=== PATIENT | male | born 1960 | race Caucasian/White ===

== ENCOUNTER → 2018-02-20 | Outpatient (CLI) | payer BC ==
--- NOTE | 2018-02-20 16:46 | CT ---
EXAMINATION TYPE: CT abdomen w con DATE OF EXAM: 02/20/2018 COMPARISON: None HISTORY: abdominal pain, hx of pancreatitis CT DLP: 1112.8 mGycm Automated exposure control for dose reduction was used. TECHNIQUE: Helical acquisition of images was performed from the lung bases through the top of iliac crest to include entire abdomen. CONTRAST: Performed with Oral Contrast and with IV Contrast, patient injected with 100 mL of Isovue 300. FINDINGS: Some mild coronary artery calcification present. There is a small hiatal hernia. LUNG BASES: No significant abnormality is appreciated. LIVER/GB: Patient is post cholecystectomy. Liver shows low attenuation possibly due to hepatic steato sis. PANCREAS: No significant abnormality is seen. SPLEEN: No significant abnormality is seen. ADRENALS: No significant abnormality is seen. KIDNEYS: No significant abnormality is seen. BOWEL: There is no change associated with the colon. Small bowel loops show some wall thickening.. LYMPH NODES: No significant abnormality is appreciated. OSSEOUS STRUCTURES: No significant abnormality is seen. FREE AIR: No Free Air visible ASCITES: None visible. RETROPERITONEAL ADENOPATHY: No Retroperitoneal Adenopathy visible. OTHER: The appendix is normal. IMPRESSION: CORRELATE FOR POSSIBLE ENTERITIS. HIATAL HERNIA. DIVERTICULOSIS. HEPATIC STEATOSIS. POSTOP CHANGES.
== END | disposition home or self-care (01) ==
LOC: RADCTMAIN 14:47
PROVIDERS: ATTEND Family Medicine
DX: K44.9 Diaphragmatic hernia without obstruction or gangrene (principal); K57.90 Diverticulosis of intestine, part unspecified, without perforation or abscess without bleeding; K76.0 Fatty (change of) liver, not elsewhere classified; Z87.19 Personal history of other diseases of the digestive system
CPT/HCPCS: 74160; Q9967

== ENCOUNTER 2018-05-07 07:53 | Day surgery (SDC) | payer BC ==
[2018-05-05 08:56] VITALS: BMI 25.7
[~2018-05-07 07:53] MED LIST: LACTATED RINGERS 1,000 ML IV SCH; LIDOCAINE 1% 20 ML VIAL (10MG/ML) FOR IV START INTRADERMA PRN
[2018-05-07 08:15] VITALS: RESP 16; TEMP 96.5
[2018-05-07] MEDS ORDERED: PROPOFOL 10 MG/ML 20 ML VIAL IV ONE (09:08)
--- NOTE | 2018-05-07 09:26 | P.PCN ---
Date of Procedure: 05/07/18 Description of Procedure: BRIEF HISTORY: The patient is a pleasant 67-year-old male with intermittent abdominal pain status post cholecystectomy. Episodes occur a few times a week in the epigastric region with radiation to the back. When initially seen he was taking Rolaids as needed for the pain. He has subsequently been started on PPI therapy with omeprazole daily and reports great improvement of his pain. He also had reported constipation and has been started on MiraLAX which she has been taking intermittently with some improvement in his bowel movements. CT evaluation in the past has been negative for any biliary or pancreatic pathology with diverticulosis, a hiatal hernia and hepatic steatosis noted. PROCEDURE PERFORMED: Esophagogastroduodenoscopy with biopsy. Room in time 907AM, procedures are time 9:15AM for procedure scheduled at 845AM. PREOPERATIVE DIAGNOSIS: GERD, epigastric abdominal pain. ESTIMATED BLOOD LOSS: Minimal. IV sedation per anesthesia. PROCEDURE: After informed consent was obtained, the patient was brought into the endoscopy unit. IV sedation was administered by Anesthesia under continuous monitoring. Initially the Olympus GIF-190 video endoscope was inserted into the mouth. Esophagus intubated without any difficulty. It was gradually advanced into the stomach and duodenum and carefully examined. The bulb and the second part of the duodenum appeared normal. The scope at this time was withdrawn to the stomach, adequately insufflated with air, and upon careful examination, mucosa of the antrum, body, cardia and the fundus appeared normal. There was mild scattered erythema and a linear fashion in the antrum and body suggestive of mild gastritis with biopsies taken. Small hiatal hernia noted. The scope was then withdrawn into the esophagus. The GE junction was located at 37 cm from the incisors. The esophagus appeared normal. There were no erosions or ulcerations seen and the patient tolerated the procedure well. IMPRESSION: 1. Mild gastritis antrum and body, biopsied. 2. Small hiatal hernia. RECOMMENDATIONS: The findings of this examination were discussed with the patient. Okay to start diet. Continue omeprazole daily therapy. Continue MiraLAX and increase to daily. Await pathology from biopsies. Follow up with gastroenterology in one to 2 months as closely scheduled.
[2018-05-07 09:44] VITALS: BP 121/75; PULSE 60
== END 2018-05-07 10:02 | disposition home or self-care (01) ==
LOC: ORWHC2ENDO 07:53
PROVIDERS: ATTEND Internal Medicine
DX: K29.50 Unspecified chronic gastritis without bleeding (principal); K44.9 Diaphragmatic hernia without obstruction or gangrene; K21.9 Gastro-esophageal reflux disease without esophagitis; G89.29 Other chronic pain; M54.9 Dorsalgia, unspecified; Z79.1 Long term (current) use of non-steroidal anti-inflammatories (NSAID); Z79.899 Other long term (current) drug therapy
CPT/HCPCS: 88305; 43239; J2704

== ENCOUNTER 2023-06-25 07:19 | Day surgery (SDC) | payer BC ==
[2023-06-23 14:06] VITALS: BMI 26.4
[2023-06-25] MEDS: LACTATED RINGERS 1,000 ML IV SCH (08:13)
[2023-06-25 08:22] VITALS: TEMP 96.8
[2023-06-25] MEDS ORDERED: LIDOCAINE 1% INJ 10MG/ML (20 ML MDV) ONE (08:33)
[2023-06-25] MEDS ORDERED: PROPOFOL 10 MG/ML 20 ML VIAL IV ONE (08:33)
--- NOTE | 2023-06-25 08:53 | P.PCN ---
Date of Procedure: 06/25/23 Procedure(s) Performed: Brief history: Patient is a pleasant 64-year-old white malescheduled for an elective upper endoscopy as well as colonoscopy as a part of evaluation of long-standing history of GERD and screening for colon cancer. Procedure performed: Esophagogastroduodenoscopy with biopsy Colonoscopy with snare polypectomy Preoperative diagnosis: GERD Screening for colon cancer Anesthesia: MAC Procedure: After informed consent was obtained from the patient was brought into the endoscopy unit and IV sedation was administered by anesthesia under continuous monitoring. Initially upper endoscopy was done. The Olympus GF 160 video endoscope was inserted inserted into the mouth and esophagus intubated without any difficulty and was gradually advanced into the stomach and duodenum and carefully examined. The bulb and second part of the duodenum appeared normal. The scope was then withdrawn into the stomach adequately insufflated with air and upon careful examination the antrum And mild gastritis and biopsies were done from this area. Mucosa of the body, cardia and fundus appeared normal. The scope was then withdrawn into the esophagus. Small hiatal hernia.The GE junction was located at 40 cm to the incisors. It appeared regular with no erythema erosions or ulcerations. Rest of the esophagus appeared normal. Patient tolerated the procedure well. At this time the patient continued to remain sedation. Initial digital rectal examination was normal. Olympus CF 160 video colonoscope was then inserted into the rectum and gradually advanced to the cecum without any difficulty. Careful examination was performed as the scope was gradually being withdrawn. The prep was excellent. The cecum, ascending colon, transverse colon, descending colon, sigmoid colon and rectum appeared normal.In the mid rectum there was a 6 minute a polyp that was removed by cold snare polypectomy. Scattered sigmoid diverticulosis. Retroflexion was performed in the rectum and no lesions were noted. Patient tolerated the procedure well. Impression: 1.Upper endoscopy revealed mild antral gastritis and small hiatal hernia but no evidence of esophagitis or peptic ulcer disease 2.Colonoscopy revealed 6 mm mid rectal polyp status post cold snare polypectomy and scattered similar diverticulosis Recommendations: Findings of this examination were discussed with the patient as well as his family. He was advised to follow with the biopsy results. If the biopsy results adenoma he can have a repeat colonoscopy in 5 years. In the meantime he will continue with omeprazole 20 mg daily and follow antireflux measures.
[2023-06-25 09:49] VITALS: BP 119/75; PULSE 71; RESP 18
== END 2023-06-25 09:46 | disposition home or self-care (01) ==
LOC: ORWHC2ENDO 07:19
PROVIDERS: ATTEND Internal Medicine Gastroenterology
DX: Z12.11 Encounter for screening for malignant neoplasm of colon (principal); D12.8 Benign neoplasm of rectum; K57.30 Diverticulosis of large intestine without perforation or abscess without bleeding; K29.50 Unspecified chronic gastritis without bleeding; K44.9 Diaphragmatic hernia without obstruction or gangrene; K21.9 Gastro-esophageal reflux disease without esophagitis; Z79.899 Other long term (current) drug therapy
CPT/HCPCS: 88305; 45385; 43239; J2001; J2704